=== PATIENT | female | born 1985 ===

== ENCOUNTER 2017-11-07 18:04 | Emergency (ER) | payer MEDICAID ==
[2017-11-07 18:48] VITALS: BP 150/98; PULSE 76; RESP 17; TEMP 98.6; O2SAT 99
--- NOTE | 2017-11-07 19:29 | ED PDOC ---
HPI: General Adult Time Seen by Provider: 11/07/17 19:27 Chief Complaint (Nursing): Abnormal Skin Integrity Chief Complaint (Provider): rash History Per: Patient (32 y/o female here with scalp irritation x 1 week not improving with cream prescribed by pmd. Denies any use of hair dye. Feels symptoms began with use of particular soap.) Past Medical History Reviewed: Historical Data, Nursing Documentation, Vital Signs Vital Signs: Last Vital Signs Temp 98.6 F 11/07/17 18:45 Pulse 76 11/07/17 18:45 Resp 17 11/07/17 18:45 BP 150/98 H 11/07/17 18:45 Pulse Ox 99 11/07/17 18:45 - Family History Family History: States: No Known Family Hx - Immunization History Hx Tetanus Toxoid Vaccination: No Hx Influenza Vaccination: No Hx Pneumococcal Vaccination: No - Home Medications Home Medications: Ambulatory Orders Medication Instructions Recorded Ketoconazole 2% Shampoo [Nizoral] 5 ml EXT BID #1 bottle 11/07/17 predniSONE [predniSONE Tab] 3 tab PO DAILY #15 tab 11/07/17 - Allergies Allergies/Adverse Reactions: Allergies Allergy/AdvReac Type Severity Reaction Status Date / Time No Known Allergies Allergy Verified 11/07/17 18:44 Review of Systems ROS Statement: Except As Marked, All Systems Reviewed And Found Negative Physical Exam - Reviewed Nursing Documentation Reviewed: Yes Vital Signs Reviewed: Yes - Physical Exam Appears: Positive for: Well, Non-toxic, No Acute Distress Head Exam: Positive for: ATRAUMATIC, NORMAL INSPECTION, NORMOCEPHALIC Skin: Positive for: Normal Color, Warm, Rash (thickened skin noted by scalp with flaky dry skin) Eye Exam: Positive for: EOMI, Normal appearance, PERRL ENT: Positive for: Normal ENT Inspection Neck: Positive for: Normal, Painless ROM Cardiovascular/Chest: Positive for: Regular Rate, Rhythm Respiratory: Positive for: CNT, Normal Breath Sounds Gastrointestinal/Abdominal: Positive for: Normal Exam, Bowel Sounds, Soft Back: Positive for: Normal Inspection Extremity: Positive for: Normal ROM Neurologic/Psych: Positive for: Alert, Oriented - ECG O2 Sat by Pulse Oximetry: 99 Disposition - Clinical Impression Clinical Impression: Acute seborrheic dermatitis - Patient ED Disposition Is Patient to be Admitted: No - Disposition Referrals: Landon Foss MD [Staff Provider] - Disposition: Routine/Home Disposition Time: 19:28 Condition: FAIR Prescriptions: Ketoconazole 2% Shampoo [Nizoral] 5 ml EXT BID #1 bottle predniSONE [predniSONE Tab] 3 tab PO DAILY #15 tab Instructions: Seborrheic Dermatitis (GEN)
== END 2017-11-07 23:04 | disposition home or self-care (01) ==
LOC: H.ER 18:04
DX: L21.9 Seborrheic dermatitis, unspecified (principal)